=== PATIENT | female | born 1995 | race Caucasian/White ===

== ENCOUNTER 2016-12-19 13:11 | Emergency (ER) | payer OTHER ==
[~2016-12-19] VITALS: Ht 162.6 cm; Wt 55.0 kg
[2016-12-19 13:15] VITALS: BP 112/57; PULSE 76; RESP 18; TEMP 98.7; O2SAT 98
[2016-12-19] MEDS ORDERED: TETANUS/DIPHTHERIA TOXOID ADULT 0.5 ML VIAL IM ONE (13:30)
[2016-12-19] MEDS ORDERED: SODIUM CHLORIDE 0.9% FLUSH 5 ML FLUSH IVF PRN (13:30)
[2016-12-19] MEDS ORDERED: ONDANSETRON HCL 4 MG/2 ML VIAL IV PUSH ONE (13:30)
[2016-12-19] MEDS ORDERED: SODIUM CHLOR 0.9% 1000 ML INJ 1,000 ML IV ONE (13:30)
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
[2016-12-19 14:21] LABS: BASOPHIL % 0.4 % (0.0-2.0); EOSINOPHIL # 0.1 TH/MM3 (0-0.4); EOSINOPHIL % 1.4 % (0.0-4.0); HEMO FLAGS DIFF FINAL; LYMPH % 20.8 % (9.0-44.0); LYMPHOCYTE # 1.8 TH/MM3 (1.0-4.8); MEAN CELL VOLUME 85.9 FL (80.0-100.0); MEAN CORPUSCULAR HEMOGLOBIN 29.1 PG (27.0-34.0); MEAN CORPUSCULAR HGB CONC 33.9 % (32.0-36.0); MONO % 7.1 % (0.0-8.0); NEUT % 70.3 % (16.0-70.0); PLATELET COUNT 249 TH/MM3 (150-450); RED BLOOD COUNT 4.43 MIL/MM3 (4.00-5.30); RED CELL DISTRIBUTION WIDTH 14.4 % (11.6-17.2); WHITE BLOOD COUNT 8.5 TH/MM3 (4.0-11.0)
[2016-12-19 14:30] LABS: APTT (PATIENT) 24.3 SEC (24.3-30.1); INTERNATIONAL NORMALIZED RATIO 0.9 RATIO; PROTHROMBIN TIME - PATIENT 10.3 SEC (9.8-11.6)
[2016-12-19 14:33] LABS: POTASSIUM 4.1 MEQ/L (3.5-5.1)
[2016-12-19] MEDS ORDERED: IOHEXOL 350 MG/ML 10 ML VIAL (for RAD DIAG) IV ONE (15:54)
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
[2016-12-19 17:04] VITALS: BP 129/79
== END 2016-12-19 17:06 | disposition home or self-care (01) ==
LOC: NEPC 13:11
DX: S30.1XXA Contusion of abdominal wall, initial encounter (principal); S80.12XA Contusion of left lower leg, initial encounter; S80.11XA Contusion of right lower leg, initial encounter; R11.0 Nausea; Z23 Encounter for immunization; Z72.0 Tobacco use; V89.2XXA Person injured in unspecified motor-vehicle accident, traffic, initial encounter; W22.10XA Striking against or struck by unspecified automobile airbag, initial encounter; Y92.410 Unspecified street and highway as the place of occurrence of the external cause
CPT/HCPCS: 71260; 73590; 74177; 80048; 84703; 85025; 85610; 85730; 90471; 90714; 96361; 96374; 99284; J2405; J7030; Q9967

== ENCOUNTER 2017-04-11 22:06 | Emergency (ER) | payer SELFPAY ==
[~2017-04-11] VITALS: Ht 154.9 cm; Wt 59.0 kg
[2017-04-11 22:08] VITALS: BP 116/69; PULSE 91; RESP 16; TEMP 98.4; O2SAT 100
--- NOTE | 2017-04-11 22:16 | PD ---
Physical Exam Date Seen by Provider: April 11, 2017 Time Seen by Provider: 22:13 Narrative 21 yo female with lower abdominal pain and vagina has swelling with discharge. No bleeding. for 4-5 weeks. No urinary symptoms. Discharge is clear. No chest pain. Some nausea and vomit. No BM issues. No allergies to meds. pain is 4/10. Vitals sign stable. Patient awaiting bed placement. Data Data Last Documented VS Vital Signs Date Time Temp Pulse Resp B/P Pulse Ox O2 Delivery O2 Flow Rate FiO2 04/11/17 22:08 98.4 91 16 116/[address] [facility] Medical Record Reviewed: Yes Supervised Visit with LUNA: No Michael Ramirez April 11, 2017 22:16
[2017-04-11] MEDS ORDERED: SODIUM CHLOR 0.9% 1000 ML INJ 1,000 ML IV ONE (23:30)
[2017-04-11] MEDS ORDERED: ONDANSETRON HCL 4 MG/2 ML VIAL IVP ONE (23:30)
[2017-04-12 00:39] LABS: AUTOMATED NEUTROPHIL # 8.1 TH/MM3 (1.8-7.7); BASOPHIL % 0.4 % (0.0-2.0); EOSINOPHIL # 0.1 TH/MM3 (0-0.4); EOSINOPHIL % 0.9 % (0.0-4.0); HEMATOCRIT 36.7 % (35.0-46.0); HEMO FLAGS DIFF FINAL; LYMPH % 25.6 % (9.0-44.0); LYMPHOCYTE # 3.1 TH/MM3 (1.0-4.8); MEAN CELL VOLUME 88.2 FL (80.0-100.0); MEAN CORPUSCULAR HEMOGLOBIN 28.6 PG (27.0-34.0); MEAN CORPUSCULAR HGB CONC 32.4 % (32.0-36.0); MONO % 6.2 % (0.0-8.0); NEUT % 66.9 % (16.0-70.0); PLATELET COUNT 208 TH/MM3 (150-450); RED BLOOD COUNT 4.16 MIL/MM3 (4.00-5.30); RED CELL DISTRIBUTION WIDTH 13.6 % (11.6-17.2)
[2017-04-12 00:52] LABS: BLOOD, URINE NEG (NEG); GLUCOSE,URINE NEG (NEG); HYALINE CAST, URINE 1 /lpf (RARE); KETONE, URINE NEG (NEG); MUCUS URINE MOD /lpf (OCC); NITRITE,URINE NEG (NEG); SQUAMOUS EPITHELIAL CELL URINE <1 /hpf (0-5); TRANSITIONAL EPI CELLS, URINE <1 /hpf; URINE COLOR YELLOW (YELLW/STRAW)
[2017-04-12 00:53] LABS: COMMENT (UR) CULT NOT INDICATED; CULTURE IF INDICATED CULT NOT INDICATED
[2017-04-12 00:59] LABS: ANION GAP 8 MEQ/L (5-15); AST (GOT) 9 U/L (15-37); BICARBONATE 25.8 MEQ/L (21.0-32.0); BLOOD UREA NITROGEN 11 MG/DL (7-18); CHLORIDE 104 MEQ/L (98-107); GLOMERULAR FILTRATION RATE 149 ML/MIN (>89); POTASSIUM 3.5 MEQ/L (3.5-5.1); SODIUM (NA) 138 MEQ/L (136-145)
[2017-04-12 01:01] LABS: ALT (GPT) 14 U/L (10-53)
--- NOTE | 2017-04-12 01:02 | PD ---
HPI Chief Complaint: Related Problem Time Seen by Provider: 23:30 Travel History International Travel<30 days: No Contact w/Intl Traveler<30days: No Traveled to known affect area: No History of Present Illness HPI The patient is 21 year old female who presents to the [facility] emergency department with a history of 2-3 days of white vaginal discharge with irritation and itching of the vaginal area. The patient reports that she has recently taken a test that was positive. She is a with one vaginal delivery prematurely at 7 months gestation. She denies having any nausea or vomiting associated with this. She reports having suprapubic abdominal discomfort. The patient denies any vaginal bleeding. The patient denies having a manager research development. The patient denies any recent fevers, cough, congestion, neck pain, chest pain, shortness of breath, vomiting, diarrhea, urinary symptoms, or neurologic symptoms. LMP 03/03/17 PFSH Past Medical History Narrative Medical The patient's past medical history is reportedly none. Medical History: Denies Significant Hx Diminished Hearing: No Tetanus Vaccination: < 5 Years Influenza Vaccination: No ?: Past Surgical History Narrative Surgical The patient's past surgical history is reportedly none. Surgical History: No Previous Surgery Social History Alcohol Use: Yes (1 time per week) Tobacco Use: Yes (8 cigarettes per day) Substance Use: No Allergies-Medications (Allergen,Severity, Reaction): Coded Allergies: Peanut (Verified Allergy, Unknown, 04/11/17) Pineapple (Verified Allergy, Unknown, 04/11/17) Reported Meds & Prescriptions Reported Meds & Active Scripts Active Terconazole Vaginal Cream 0.8 % Cream 1 Appl VAGINAL HS For 3 days. Review of Systems Except as stated in HPI: all other systems reviewed are Neg General / Constitutional: No: Fever Eyes: No: Visual changes HENT: No: Headaches Cardiovascular: No: Chest Pain or Discomfort Respiratory: No: Shortness of Breath Gastrointestinal: Positive: Nausea, Abdominal Pain, No: Vomiting, Diarrhea, Changes in Bowel Habits, Loss of Appetite Genitourinary: Positive: Pelvic Pain, Discharge, No: Dysuria, Vaginal Bleeding Musculoskeletal: No: Pain Skin: No Rash Neurologic: No: Weakness Psychiatric: No: Depression Endocrine: No: Polydipsia Hematologic/Lymphatic: No: Easy Bruising Physical Exam Narrative General: The patient is a well-developed male in no acute distress. Head and Neck exam: Head is normocephalic atraumatic. Eyes: EOMI, pupils are equal round and reactive to light. Nose: Midline septum with pink mucous membranes Mouth: Dentition unremarkable. Moist mucus membranes. Posterior oropharynx is not erythematous. No tonsillar hypertrophy. Uvula midline. Airway patent. Neck: No palpable lymphadenopathy. No nuchal rigidity. No thyromegaly. Cardiovascular: Regular rate and rhythm without murmurs, gallops, or rubs. Lungs: Clear to auscultation bilaterally. No wheezes, rhonchi, or rales. Abdomen: Soft, without tenderness to palpation in all 4 quadrants of the abdomen. No guarding, rebound, or rigidity. Normal bowel sounds are audible. No tenderness on palpation of McBurney's point. Extremities: No clubbing, cyanosis, or edema. 2+ pulses in all 4 extremities. No calf tenderness on palpation. Back: No costovertebral angle tenderness to palpation. Neurologic Exam: Grossly nonfocal Skin Exam: No rash noted. Intact skin that is warm and dry. Gynecologic exam: The patient was placed in the dorsal lithotomy position. Her external genitalia were examined. She had irritation around the vaginal introitus and labium minora that consists of mild erythema. No other lesions noted. The speculum was placed into her vagina and the cervix was identified. She had a physiologic appearing clear white discharge. No cervical friability. On Bimanual exam: she has no cervical motion tenderness. No adnexal tenderness or prominence noted on palpation. No uterine tenderness on palpation. Data Data Last Documented VS Vital Signs Date Time Temp Pulse Resp B/P Pulse Ox O2 Delivery O2 Flow Rate FiO2 04/12/17 03:16 98.4 67 18 110/54 100 Room Air Orders Beta Hcg (Quant/Titer) (04/11/17 23:30) Complete Blood Count With Diff (04/11/17 23:30) Comprehensive Metabolic Panel (04/11/17 23:30) Gc And Chlamydia Pcr (04/11/17 23:30) Complete Rh (04/11/17 23:30) Wet Prep Profile (04/11/17 23:30) Urinalysis - C+S If Indicated (04/11/17 23:30) Iv Access Insert/Monitor (04/11/17 23:30) Ecg Monitoring (04/11/17 23:30) Ondansetron Inj (Zofran Inj) (04/11/17 23:30) Sodium Chlor 0.9% 1000 Ml Inj (Ns 1000 M (04/11/17 23:30) Us Pelvis (Ques Preg/Ectopic) (04/12/17 ) Labs Laboratory Tests Test 04/12/17 04/12/17 00:24 00:38 White Blood Count 12.0 TH/MM3 Red Blood Count 4.16 MIL/MM3 Hemoglobin 11.9 GM/DL Hematocrit 36.7 % Mean Corpuscular Volume 88.2 FL Mean Corpuscular Hemoglobin 28.6 PG Mean Corpuscular Hemoglobin 32.4 % Concent Red Cell Distribution Width 13.6 % Platelet Count 208 TH/MM3 Mean Platelet Volume 9.1 FL Neutrophils (%) (Auto) 66.9 % Lymphocytes (%) (Auto) 25.6 % Monocytes (%) (Auto) 6.2 % Eosinophils (%) (Auto) 0.9 % Basophils (%) (Auto) 0.4 % Neutrophils # (Auto) 8.1 TH/MM3 Lymphocytes # (Auto) 3.1 TH/MM3 Monocytes # (Auto) 0.7 TH/MM3 Eosinophils # (Auto) 0.1 TH/MM3 Basophils # (Auto) 0.0 TH/MM3 CBC Comment DIFF FINAL Differential Comment Urine Color YELLOW Urine Turbidity CLEAR Urine pH 6.0 Urine Specific [place] 1.024 Urine Protein TRACE mg/dL Urine Glucose (UA) NEG mg/dL Urine Ketones NEG mg/dL Urine Occult Blood NEG Urine Nitrite NEG Urine Bilirubin NEG Urine Urobilinogen 2.0 MG/DL Urine Leukocyte Esterase TRACE Urine RBC LESS THAN 1 /hpf Urine WBC 2 /hpf Urine Squamous Epithelial <1 /hpf Cells Urine Transitional Epithelial <1 /hpf Cells Urine Hyaline Casts 1 /lpf Urine Mucus MOD /lpf Microscopic Urinalysis Comment CULT NOT INDICATED Sodium Level 138 MEQ/L Potassium Level 3.5 MEQ/L Chloride Level 104 MEQ/L Carbon Dioxide Level 25.8 MEQ/L Anion Gap 8 MEQ/L Blood Urea Nitrogen 11 MG/DL Creatinine 0.51 MG/DL Estimat Glomerular Filtration 149 ML/MIN Rate Random Glucose 81 MG/DL Calcium Level 8.7 MG/DL Total Bilirubin 0.2 MG/DL Aspartate Amino Transf 9 U/L (AST/SGOT) Alanine Aminotransferase 14 U/L (ALT/SGPT) Alkaline Phosphatase 43 U/L Total Protein 6.7 GM/DL Albumin 3.7 GM/DL Human Chorionic Gonadotropin, 07909 MIU/ML Quant Blood Type A POSITIVE Rho(D) Type POSITIVE Clue Cells (Wet Prep) NONE SEEN Vaginal Trichomonas (Wet Prep) NONE SEEN Vaginal Yeast (Wet Prep) NONE SEEN Chlamydia trachomatis DNA NOT DETECTED (PCR) Neisseria gonorrhoeae DNA NOT DETECTED (PCR) MDM Medical Decision Making Medical Screen Exam Complete: Yes Emergency Medical Condition: Yes Medical Record Reviewed: Yes Differential Diagnosis Ectopic , versus yeast vaginitis, versus bacterial vaginosis, versus trichomoniasis, versus urinary tract infection Narrative Course During the course of the patients emergency department visit, the patients history, examination, and differential diagnosis were reviewed with the patient. The patient had IV access obtained and blood work sent for analysis. The patient was placed on a bus monitor with oximetry and blood pressure monitoring. The patient was initially provided normal saline 1 L IV fluid bolus, Zofran 4 mg IV. The patients laboratory studies were reviewed and remarkable for a white count of 12, hemoglobin 11.9, platelets 208 with a normal differential, CMP is remarkable for an AST of 9, alkaline phosphatase 43, quantitative beta hCG 29, 255, urinalysis shows trace leukocyte esterase, otherwise unremarkable, wet prep shows no acute abdomen on a. Radiology studies were reviewed and remarkable for an ultrasound that revealed a 6 week 2 day intrauterine with heart activity. There is a complex elongated hypoechoic area adjacent to the gestational sac which could be a submental in his hemorrhage/subchorionic hemorrhage. The patient was instructed regarding these findings. The patient was instructed on bed rest and pelvic rest other than to use the Terazol and the importance of following up with a manager research development. She was given the name of the manager research development airborne mission systems superintendent for follow-up. Her blood type is A+. The patient's symptoms are consistent with yeast vaginitis. The patient will be discharged home on Terazol. The patient is resting comfortably and feels better, is alert and in no distress. The patients results and examination findings were discussed with the patient. The repeat examination is unremarkable and benign. The history, exam, diagnostic testing, and current condition do not suggest any significant pathology to warrant further testing, continued ED treatment, admission, or surgical evaluation at this point. The vital signs have been stable. The patient does not have uncontrollable pain, intractable vomiting, or other significant symptoms. The patient's condition is stable and appropriate for discharge. The patient will pursue further outpatient evaluation with a primary care physician or other designated or consulting physician as indicated in the discharge instructions. The patient expressed understanding and was agreeable with this plan. Diagnosis Primary Impression: Qualified Code: Z3A.01 - Less than 8 weeks gestation of Additional Impressions: Vaginitis Qualified Code: N76.0 - Acute vaginitis Subchorionic hemorrhage in first trimester Referrals: Rachelle Bagley MD 1 week Patient Instructions: Abdominal Pain in (ED), General Instructions, Vaginitis (ED) Med/Other Pt SpecificInfo: Prescription(s) given Scripts Terconazole Vaginal Cream 0.8 % Cream1 Appl VAGINAL HS #3 GM Ref 0 For 3 days. Prov:Loly Wong MD 04/12/17 Disposition: 01 DISCHARGE HOME Condition: Stable Loly Wong MD April 12, 2017 01:02
[2017-04-12 01:16] LABS: ALKALINE PHOSPHATASE 43 U/L (45-117); BETA HCG QUANT 29255 MIU/ML (0-5); TOTAL BILIRUBIN ADULT 0.2 MG/DL (0.2-1.0)
[2017-04-12 02:16] LABS: CHLAMYDIA PCR NOT DETECTED (NOT DETECT); NEISSERIA PCR NOT DETECTED (NOT DETECT)
[2017-04-12] MEDS ORDERED: TERC0.8C VAGINAL (02:22)
[2017-04-12 03:16] VITALS: BP 110/54; PULSE 67; RESP 18; TEMP 98.4; O2SAT 100
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
== END 2017-04-12 03:16 | disposition home or self-care (01) ==
LOC: NEPE 22:06
DX: O23.591 Infection of other part of genital tract in pregnancy, first trimester (principal); O20.8 Other hemorrhage in early pregnancy; O99.331 Smoking (tobacco) complicating pregnancy, first trimester; F17.210 Nicotine dependence, cigarettes, uncomplicated; Z3A.01 Less than 8 weeks gestation of pregnancy
CPT/HCPCS: 76700; 80053; 81001; 84702; 85025; 86901; 87210; 87491; 87591; 99284; J7030

== ENCOUNTER 2017-06-02 22:27 | Emergency (ER) | payer OTHER ==
[~2017-06-02] VITALS: Ht 154.9 cm; Wt 59.0 kg
[~2017-06-02 22:27] MED LIST: TERC0.8C VAGINAL
[2017-06-02 22:30] VITALS: BP 105/63; PULSE 92; RESP 16; TEMP 98.9; O2SAT 99
[2017-06-03] MEDS ORDERED: LIDOCAINE HCL 1% 50 ML VIAL IM ONE (00:30)
[2017-06-03] MEDS ORDERED: cefTRIAXone 250 MG VIAL IM ONE (00:30)
[2017-06-03] MEDS ORDERED: metroNIDAZOLE 500 MG TAB PO ONE (00:30)
[2017-06-03] MEDS ORDERED: AZITHROMYCIN PWD FOR SUSP 1 GM PACKET PO ONE (00:30)
[2017-06-03 00:49] LABS: BLOOD, URINE NEG (NEG); COMMENT (UR) CULT NOT INDICATED; CULTURE IF INDICATED CULT NOT INDICATED; GLUCOSE,URINE NEG (NEG); KETONE, URINE NEG (NEG); MUCUS URINE FEW /lpf (OCC); NITRITE,URINE NEG (NEG); SQUAMOUS EPITHELIAL CELL URINE <1 /hpf (0-5); URINE COLOR LIGHT-YELLOW (YELLW/STRAW)
--- NOTE | 2017-06-03 00:51 | PD ---
HPI Chief Complaint: Apple Turner Problem/Complaint Time Seen by Provider: 23:53 Travel History International Travel<30 days: No Contact w/Intl Traveler<30days: No Traveled to known affect area: No History of Present Illness HPI 21yo F who is 13 weeks 1 day as per LMP of 03/03/17 presents to the ED with c/o bumps on her left labia today. States yesterday she started feeling pain in her left labia. Pt has also had intermittent vaginal discharge that is white/yellow for 1 month. Denies any fever, chest pain, sob, vomiting, abdominal pain. Pt was seen at [place] on 04/11/17 for vaginal discharge and had US that showed IUP at 6weeks 2d and negative wet prep and GC/chlamydia. Pt was treated with terazol for symptoms consistent with yeast. [facility] Past Medical History Medical History: Denies Significant Hx Diminished Hearing: No Tetanus Vaccination: Never Vaccinated ?: LMP: 02-26-17 Past Surgical History Surgical History: No Previous Surgery Social History Alcohol Use: No Tobacco Use: No (8 cigarettes per day) Substance Use: No Allergies-Medications (Allergen,Severity, Reaction): Coded Allergies: Peanut (Verified Allergy, Unknown, 06/02/17) Pineapple (Verified Allergy, Unknown, 06/02/17) Reported Meds & Prescriptions Reported Meds & Active Scripts Active No Active Prescriptions or Reported Medications Review of Systems Except as stated in HPI: all other systems reviewed are Neg Physical Exam Narrative GENERAL: 21yo F not in distress. SKIN: Focused skin assessment warm/dry. HEAD: Atraumatic. Normocephalic. CARDIOVASCULAR: Regular rate and rhythm. No murmur appreciated. RESPIRATORY: No accessory muscle use. Clear to auscultation. Breath sounds equal bilaterally. GASTROINTESTINAL: Abdomen soft, gravid. No tenderness to palpation. No rebound tenderness or guarding. PELVIC: +4 vesicular lesions on left labia. +yellow/white vaginal discharge. No vaginal bleeding. No CMT or adnexal tenderness bilaterally. MUSCULOSKELETAL: No obvious deformities. No clubbing. No cyanosis. No edema. NEUROLOGICAL: Awake and alert. No obvious cranial nerve deficits. Motor grossly within normal limits. Normal speech. PSYCHIATRIC: Appropriate mood and affect; insight and judgment normal. Data Data Last Documented VS Vital Signs Date Time Temp Pulse Resp B/P Pulse Ox O2 Delivery O2 Flow Rate FiO2 06/02/17 23:52 16 06/02/17 22:30 98.9 92 105/63 99 Orders Gc And Chlamydia Pcr (06/03/17 00:21) Wet Prep Profile (06/03/17 00:21) Urinalysis - C+S If Indicated (06/03/17 00:21) Metronidazole (Flagyl) (06/03/17 00:30) Azithromycin Powd Pack (Zithromax Powd P (06/03/17 00:30) Ceftriaxone Inj (Rocephin Inj) (06/03/17 00:30) Lidocaine 1% Inj (50 Ml) (Xylocaine 1% I (06/03/17 00:30) Ed Poc Ultrasound (06/03/17 ) Labs Laboratory Tests Test 06/03/17 00:20 Urine Color LIGHT-YELLOW Urine Turbidity CLEAR Urine pH 6.0 Urine Specific [place] 1.011 Urine Protein NEG mg/dL Urine Glucose (UA) NEG mg/dL Urine Ketones NEG mg/dL Urine Occult Blood NEG Urine Nitrite NEG Urine Bilirubin NEG Urine Urobilinogen LESS THAN 2.0 MG/DL Urine Leukocyte Esterase NEG Urine WBC 1 /hpf Urine Squamous Epithelial <1 /hpf Cells Urine Mucus FEW /lpf Microscopic Urinalysis Comment CULT NOT INDICATED Clue Cells (Wet Prep) NONE SEEN Vaginal Trichomonas (Wet Prep) NONE SEEN Vaginal Yeast (Wet Prep) NONE SEEN MDM Medical Decision Making Medical Screen Exam Complete: Yes Emergency Medical Condition: Yes Differential Diagnosis Genital herpes vs. chlamydia vs. gonorrhea vs. bacterial vaginosis Narrative Course 21yo F here with complaint of bumps and pain on left labia, exam is consistent with genital herpes. UA showed no leukocyte. Culture not indicated. Given the yellow/white vaginal discharge, I empirically treated her with ceftriaxone 250mg IM, azithromycin 1gm and metronidazole 500mg PO. Wet prep negative. Pt also given first dose of acyclovir. Pt has no abdominal pain or vaginal bleeding. Procedures Procedure Narrative Emergency Department Pelvic ultrasound was performed with patient consent. The curvilinear probe was used in the transverse and sagittal views within the suprapubic region revealing single intrauterine . heart rate was 141bpm. + movement. Diagnosis Primary Impression: Genital herpes Qualified Code: A60.04 - Herpes simplex vulvovaginitis Patient Instructions: General Instructions Departure Forms: Tests/Procedures Additional Instructions: Please follow up with your OBGYN in 3-7 days. Return to the ED if your symptoms worsen. Med/Other Pt SpecificInfo: Prescription(s) given Scripts Acetaminophen (Tylenol)325 Mg Xmc187 Mg PO Q6H PRN (PAIN SCALE 1 TO 4) #20 TAB Ref 0 Prov:Beth Adler DO 06/03/17 Acyclovir 400 Mg Pev123 Mg PO TID 10 Days Ref 0 Prov:Beth Adler DO 06/03/17 Disposition: 01 DISCHARGE HOME Condition: Stable Beth Adler DO Jun 03, 2017 00:51
[2017-06-03] MEDS ORDERED: ACYCLOVIR 200 MG CAP PO SCH (01:15)
[2017-06-03] MEDS ORDERED: ACYC400T PO (01:18)
[2017-06-03] MEDS ORDERED: TYLE325T PO (01:18)
[2017-06-03 01:36] VITALS: BP 112/44; TEMP 98.3
[2017-06-03 02:41] LABS: CHLAMYDIA PCR NOT DETECTED (NOT DETECT); NEISSERIA PCR NOT DETECTED (NOT DETECT)
== END 2017-06-03 01:44 | disposition home or self-care (01) ==
LOC: NEPD 22:27
DX: A60.04 Herpesviral vulvovaginitis (principal); O26.91 Pregnancy related conditions, unspecified, first trimester; Z3A.13 13 weeks gestation of pregnancy
CPT/HCPCS: 81001; 87210; 87491; 87591; 96372; 99285; J0696